=== PATIENT | male | born 1940 | race Caucasian/White ===

== ENCOUNTER 2018-10-11 17:10 | Inpatient (IN) | payer MEDICARE, OTHER ==
[~2018-10-11] VITALS: Ht 177.8 cm; Wt 56.5 kg
[2018-10-11] MEDS ORDERED: DILTIAZEM 125 MG in DEXTROSE 5% 100 ML IV SCH (17:13)
[2018-10-11] MEDS ORDERED: DILTIAZEM 5 MG/ML, 5ML IV ONE (17:30)
[2018-10-11] MEDS ORDERED: SODIUM CHLORIDE FLUSH 10ML SYR IVF ONE ×2 (17:30→18:00)
[2018-10-11] MEDS ORDERED: [UNRECOGNIZED DRUG - REMARK] MC SCH (17:30)
[2018-10-11] MEDS ORDERED: DILTIAZEM 5 MG/ML, 10ML ONE (17:35)
[2018-10-11 18:10] LABS: BASOPHILS # (AUTO) 0.01 x10^3/uL (0-0.1); BASOPHILS % (AUTO) 0 % (0-1); EOSINOPHILS # (AUTO) 0.04 x10^3/uL (0-0.4); EOSINOPHILS % (AUTO) 1 % (1-7); LYMPHOCYTES % (AUTO) 8 % (22-44); MD NO; MEAN CORPUSCULAR HEMOGLOBIN 29.3 pg (27.5-34.5); MEAN CORPUSCULAR HGB CONC 33.1 g/dL (33.2-36.2); MEAN CORPUSCULAR VOLUME 88.4 fL (81-97); MEAN PLATELET VOLUME 8.9 fL (7.4-10.4); MONOCYTES # (AUTO) 0.54 x10^3/uL (0.2-0.8); MONOCYTES % (AUTO) 7 % (2-9); NEUTROPHILS # (AUTO) 6.45 x10^3/uL (1.8-6.8); NEUTROPHILS % (AUTO) 84 % (42-75); PLATELET COUNT 260 x10^3/uL (130-400); RED BLOOD COUNT 4.58 x10^6/uL (4.38-5.82)
[2018-10-11 18:18] LABS: INTERNATIONAL NORMALIZED RATIO 0.95 (0.93-1.1)
--- NOTE | 2018-10-11 18:18 | NUR ---
Pt presents to ED by EMS after being [place] "wandering [place] with word salad speech". Pt is AOx1, skin is pink, warm, dry, all extremities are strong, no drift of arms observed, no defecits observed in all extremities. Pt has old eye injury to left eye prior to arrival. Pt has unlabored respirations equal bilaterally. ED MD at bedside when EMS arrived. Pt has 18g PIV in right bicep placed ship's captain. Pt connected to NIBP, continous pulse ox, and cardiac nurse specialist. All safety measurs in place, call light is within reach.
--- NOTE | 2018-10-11 18:20 | NUR ---
Pt transported on [place] to [place] at this time.
[2018-10-11 18:21] LABS: ALBUMIN 3.5 g/dL (3.4-5.0); ANION GAP 10 mmol/L (5-15); CALCIUM 9.4 mg/dL (8.5-10.1); CHLORIDE 102 mmol/L (98-107)
[2018-10-11 18:24] LABS: ALANINE AMINOTRANSFERASE 13 U/L (12-78); ALKALINE PHOSPHATASE 84 U/L (45-117); BILIRUBIN,TOTAL 0.5 mg/dL (0.2-1.0); CREATINE KINASE, TOTAL 109 U/L (39-308); TROPONIN I 0.034 ng/mL (0.000-0.045)
[2018-10-11] MEDS ORDERED: ONDANSETRON 2MG/ML, 2ML ONE (18:29)
[2018-10-11 18:30] LABS: T4 (THYROXINE) 8.6 mcg/dL (4.5-12.1)
[2018-10-11] MEDS ORDERED: ONDANSETRON 2MG/ML, 2ML IVPush ONE (18:30)
--- NOTE | 2018-10-11 18:47 | NUR ---
Pt returned from CT unable to have CT done due to vomiting, agitation, and attempting to climb out of bed without assistance. Pt provided medication per EMAR for nausea and vomiting. Pt assisted with urinal by ED staff nurse. Pt resting on gurney quietly at this time with sitter near bedside. Pt connected to aeronautical research engineer, NIBP, and continous pulse ox. All safety measures in place. Pt has unlabored respirations equal bilaterally.
--- NOTE | 2018-10-11 18:56 | NUR ---
Provided bedside report to TANYA Grider. All questions answered. TANYA Grider asssuming care of pt at this time. Pt transported on gurney to CT at this time.
--- NOTE | 2018-10-11 19:00 | NUR ---
ASSUMED CARE OF PATIENT. REPORT GIVEN FROM TANYA WEATHERS
--- NOTE | 2018-10-11 19:01 | NUR ---
PT WENT TO CT
[2018-10-11] MEDS ORDERED: LORazepam 2 MG/ML, 1ML ONE ×2 (19:08→20:17)
--- NOTE | 2018-10-11 19:12 | NUR ---
PT WAS NOT ABLE TO HOLD STILL ON CT TABLE. ATIVAN GIVEN PER DR PAYNE VS STABLE. WILL CONTINUE TO MONITOR.
[2018-10-11 19:14] LABS: ACETONE, SERUM Small (20mg/dL) mg/dL (Negative)
--- NOTE | 2018-10-11 19:25 | NUR ---
HOLD JESSICA AT THIS TIME PER DR PAYNE
[2018-10-11] MEDS ORDERED: LORazepam 2 MG/ML, 1ML IVPush ONE ×2 (19:30→20:30)
[2018-10-11 19:49] LABS: MICROSCOPIC INDICATED
[2018-10-11 19:58] LABS: CULTURE INDICATED? NO
--- NOTE | 2018-10-11 20:28 | NUR ---
PT IS AGITATED AND TRYING TO CRAWL OUT OF BED. PT MEDICATED SITTER AT BEDSIDE. WILL CONTINUE TO MONITOR.
[2018-10-11] MEDS ORDERED: LABETALOL 5 MG/ML SYRINGE IVPush PRN (20:30)
[2018-10-11] MEDS ORDERED: SODIUM CHLORIDE FLUSH 10ML SYR IVF PRN (20:30)
[2018-10-11] MEDS ORDERED: ASPIRIN 325 MG TABLET PO ONE (21:00)
[2018-10-11] MEDS ORDERED: HALOPERIDOL 5 MG/ML IV PRN (21:00)
[2018-10-11] MEDS ORDERED: HEPARIN 5,000 UNITS/ML, 1ML IV ONE (21:00)
[2018-10-11] MEDS: SODIUM CHLORIDE 0.9% 1,000 ML IV SCH (21:06)
--- NOTE | 2018-10-11 21:13 | NUR ---
US IN ROOM
[2018-10-11] MEDS: INSULIN LISPRO 100 UNITS/ML, PEN SQ-INSULIN SCH (21:17)
[2018-10-11] MEDS: DILTIAZEM 30 MG TABLET PO SCH (21:21)
--- NOTE | 2018-10-11 21:29 | NUR ---
PT PLACED ON A AIR MATRESS FOR COMFORT.
[2018-10-11] MEDS ORDERED: HEPARIN 25,000 UNITS/500ML PMX 500 ML ONE (21:31)
[2018-10-11] MEDS ORDERED: HEPARIN 5,000 UNITS/ML, 1ML ONE (21:31)
[2018-10-11] MEDS ORDERED: ASPIRIN 325 MG TABLET ONE (21:31)
[2018-10-11 21:48] LABS: HEMOGLOBIN A1C 11.8 % (4.2-6.3)
--- NOTE | 2018-10-11 22:06 | NUR ---
HEPARIN NOT GIVEN, WAITING ON LAB TO BE DRAWN
[2018-10-11] MEDS: HEPARIN 25,000 UNITS/500ML PMX 500 ML IV PRN (22:52)
[2018-10-12 00:10] VITALS: BP 186/87
[2018-10-12] MEDS: DILTIAZEM 30 MG TABLET PO SCH ×2 (04:25→12:02)
[2018-10-12 05:38] VITALS: BP 156/69
[2018-10-12 05:38] LABS: BASOPHILS # (AUTO) 0.04 x10^3/uL (0-0.1); BASOPHILS % (AUTO) 1 % (0-1); EOSINOPHILS # (AUTO) 0.12 x10^3/uL (0-0.4); EOSINOPHILS % (AUTO) 2 % (1-7); LYMPHOCYTES # (AUTO) 1.22 x10^3/uL (1-3.4); LYMPHOCYTES % (AUTO) 16 % (22-44); MD NO; MEAN CORPUSCULAR HEMOGLOBIN 28.6 pg (27.5-34.5); MEAN CORPUSCULAR HGB CONC 32.6 g/dL (33.2-36.2); MEAN CORPUSCULAR VOLUME 87.8 fL (81-97); MEAN PLATELET VOLUME 8.5 fL (7.4-10.4); MONOCYTES % (AUTO) 16 % (2-9); NEUTROPHILS # (AUTO) 5.12 x10^3/uL (1.8-6.8); NEUTROPHILS % (AUTO) 66 % (42-75); PLATELET COUNT 231 x10^3/uL (130-400); RED BLOOD COUNT 4.39 x10^6/uL (4.38-5.82); RED CELL DISTRIBUTION WIDTH 14.8 % (9.4-14.8)
[2018-10-12 05:52] LABS: CALCIUM 8.7 mg/dL (8.5-10.1); CHLORIDE 106 mmol/L (98-107)
[2018-10-12 06:06] LABS: ANION GAP 8 mmol/L (5-15); CREATININE 1.76 mg/dL (0.7-1.3)
[2018-10-12 07:50] VITALS: BP 162/86
[2018-10-12] MEDS: SODIUM CHLORIDE 0.9% 1,000 ML IV SCH ×2 (09:36→20:36)
[2018-10-12] MEDS: INSULIN LISPRO 100 UNITS/ML, PEN SQ-INSULIN SCH ×4 (11:00→20:36)
[2018-10-12] MEDS: HEPARIN 5,000 UNITS/ML, 1ML IV PRN (12:43)
[2018-10-12 13:55] VITALS: BP 157/74
[2018-10-12] MEDS ORDERED: hydrALAzine 20 MG/ML, 1ML IV ONE ×2 (15:00)
[2018-10-12] MEDS: CARVEDILOL 6.25 MG TABLET PO SCH (17:42)
[2018-10-12] MEDS ORDERED: CARVEDILOL 6.25 MG TABLET PO SCH (18:00)
[2018-10-12 20:04] VITALS: BP 160/88
[2018-10-12] MEDS: LISINOPRIL 10 MG TABLET PO SCH (20:32)
[2018-10-12] MEDS: ATORVASTATIN 80 MG TABLET PO SCH (20:32)
[2018-10-13 01:48] VITALS: BP 158/87
[2018-10-13] MEDS: HEPARIN 25,000 UNITS/500ML PMX 500 ML IV PRN (03:35)
[2018-10-13] MEDS: HEPARIN 5,000 UNITS/ML, 1ML IV PRN ×2 (03:37→17:56)
[2018-10-13] MEDS ORDERED: ASPIRIN 325 MG TABLET PO SCH (06:00)
[2018-10-13 06:05] LABS: BASOPHILS # (AUTO) 0.06 x10^3/uL (0-0.1); BASOPHILS % (AUTO) 1 % (0-1); EOSINOPHILS % (AUTO) 6 % (1-7); LYMPHOCYTES # (AUTO) 0.99 x10^3/uL (1-3.4); LYMPHOCYTES % (AUTO) 16 % (22-44); MD NO; MEAN CORPUSCULAR HEMOGLOBIN 29.4 pg (27.5-34.5); MEAN CORPUSCULAR HGB CONC 33.4 g/dL (33.2-36.2); MEAN PLATELET VOLUME 8.6 fL (7.4-10.4); MONOCYTES # (AUTO) 0.68 x10^3/uL (0.2-0.8); MONOCYTES % (AUTO) 11 % (2-9); NEUTROPHILS # (AUTO) 4.13 x10^3/uL (1.8-6.8); NEUTROPHILS % (AUTO) 66 % (42-75); PLATELET COUNT 215 x10^3/uL (130-400); RED BLOOD COUNT 4.37 x10^6/uL (4.38-5.82); RED CELL DISTRIBUTION WIDTH 15.1 % (9.4-14.8)
[2018-10-13 06:17] LABS: ANION GAP 7 mmol/L (5-15); CALCIUM 8.8 mg/dL (8.5-10.1); CHLORIDE 106 mmol/L (98-107); CREATININE 1.67 mg/dL (0.7-1.3)
[2018-10-13] MEDS: CARVEDILOL 6.25 MG TABLET PO SCH (06:46)
[2018-10-13] MEDS: ASPIRIN 81 MG TABLET CHEW PO SCH (06:47)
[2018-10-13] MEDS: INSULIN LISPRO 100 UNITS/ML, PEN SQ-INSULIN SCH ×4 (07:00→20:34)
[2018-10-13 08:26] VITALS: BP 153/89
[2018-10-13] MEDS: LISINOPRIL 10 MG TABLET PO SCH ×2 (09:20→20:29)
[2018-10-13 13:55] VITALS: BP 136/81
[2018-10-13] MEDS: CARVEDILOL 25 MG TABLET PO SCH (17:14)
[2018-10-13] MEDS ORDERED: CARVEDILOL 6.25 MG TABLET PO SCH (18:00)
[2018-10-13] MEDS ORDERED: CARVEDILOL 25 MG TABLET PO SCH (18:00)
[2018-10-13 19:39] VITALS: BP 155/82
[2018-10-13] MEDS: ATORVASTATIN 80 MG TABLET PO SCH (20:29)
[2018-10-14 00:48] VITALS: BP 158/75
[2018-10-14] MEDS: HEPARIN 25,000 UNITS/500ML PMX 500 ML IV PRN (03:46)
[2018-10-14] MEDS: CARVEDILOL 25 MG TABLET PO SCH ×2 (05:47→17:47)
[2018-10-14 06:33] LABS: BASOPHILS # (AUTO) 0.04 x10^3/uL (0-0.1); BASOPHILS % (AUTO) 1 % (0-1); EOSINOPHILS # (AUTO) 0.24 x10^3/uL (0-0.4); EOSINOPHILS % (AUTO) 4 % (1-7); LYMPHOCYTES # (AUTO) 0.68 x10^3/uL (1-3.4); LYMPHOCYTES % (AUTO) 12 % (22-44); MD NO; MEAN CORPUSCULAR HEMOGLOBIN 29.2 pg (27.5-34.5); MEAN CORPUSCULAR HGB CONC 33.4 g/dL (33.2-36.2); MEAN CORPUSCULAR VOLUME 87.5 fL (81-97); MEAN PLATELET VOLUME 8.6 fL (7.4-10.4); MONOCYTES # (AUTO) 0.61 x10^3/uL (0.2-0.8); MONOCYTES % (AUTO) 11 % (2-9); NEUTROPHILS # (AUTO) 4.07 x10^3/uL (1.8-6.8); NEUTROPHILS % (AUTO) 72 % (42-75); PLATELET COUNT 209 x10^3/uL (130-400); RED BLOOD COUNT 4.19 x10^6/uL (4.38-5.82); RED CELL DISTRIBUTION WIDTH 15.2 % (9.4-14.8)
[2018-10-14 06:45] LABS: ANION GAP 6 mmol/L (5-15); CALCIUM 8.6 mg/dL (8.5-10.1); CHLORIDE 105 mmol/L (98-107); CREATININE 1.56 mg/dL (0.7-1.3)
[2018-10-14 07:20] VITALS: BP 135/65
[2018-10-14] MEDS: INSULIN LISPRO 100 UNITS/ML, PEN SQ-INSULIN SCH ×4 (07:57→20:49)
[2018-10-14] MEDS ORDERED: REGADENOSON 0.4 MG/5 ML SYRINGE ONE (10:31)
[2018-10-14] MEDS: LISINOPRIL 10 MG TABLET PO SCH ×2 (11:30→20:48)
[2018-10-14 14:40] VITALS: BP 114/67
[2018-10-14 18:59] VITALS: BP 135/71
[2018-10-14] MEDS: ATORVASTATIN 80 MG TABLET PO SCH (20:48)
[2018-10-15 00:56] VITALS: BP 157/82
[2018-10-15] MEDS: HEPARIN 25,000 UNITS/500ML PMX 500 ML IV PRN (02:32)
[2018-10-15 05:34] LABS: BASOPHILS # (AUTO) 0.01 x10^3/uL (0-0.1); BASOPHILS % (AUTO) 0 % (0-1); EOSINOPHILS # (AUTO) 0.25 x10^3/uL (0-0.4); EOSINOPHILS % (AUTO) 5 % (1-7); LYMPHOCYTES # (AUTO) 0.94 x10^3/uL (1-3.4); LYMPHOCYTES % (AUTO) 18 % (22-44); MD NO; MEAN CORPUSCULAR HEMOGLOBIN 29.6 pg (27.5-34.5); MEAN CORPUSCULAR HGB CONC 33.8 g/dL (33.2-36.2); MEAN CORPUSCULAR VOLUME 87.6 fL (81-97); MEAN PLATELET VOLUME 9.4 fL (7.4-10.4); MONOCYTES # (AUTO) 0.64 x10^3/uL (0.2-0.8); MONOCYTES % (AUTO) 12 % (2-9); NEUTROPHILS # (AUTO) 3.42 x10^3/uL (1.8-6.8); NEUTROPHILS % (AUTO) 65 % (42-75); PLATELET COUNT 198 x10^3/uL (130-400); RED BLOOD COUNT 3.95 x10^6/uL (4.38-5.82); RED CELL DISTRIBUTION WIDTH 15.1 % (9.4-14.8)
[2018-10-15 05:39] LABS: ANION GAP 5 mmol/L (5-15); CALCIUM 8.6 mg/dL (8.5-10.1); CHLORIDE 107 mmol/L (98-107)
[2018-10-15 05:41] LABS: CREATININE 1.66 mg/dL (0.7-1.3)
[2018-10-15] MEDS: ASPIRIN 81 MG TABLET CHEW PO SCH (06:28)
[2018-10-15] MEDS: CARVEDILOL 25 MG TABLET PO SCH ×2 (06:29→16:50)
[2018-10-15 07:30] VITALS: BP 138/72
[2018-10-15] MEDS: INSULIN LISPRO 100 UNITS/ML, PEN SQ-INSULIN SCH ×4 (08:55→21:00)
[2018-10-15] MEDS: LISINOPRIL 10 MG TABLET PO SCH ×2 (10:29→21:00)
[2018-10-15 13:55] VITALS: BP 144/71
[2018-10-15] MEDS: RIVAROXABAN 15 MG TABLET PO SCH (16:50)
[2018-10-15] MEDS: ATORVASTATIN 80 MG TABLET PO SCH (20:59)
[2018-10-15 21:58] VITALS: BP 153/68
[2018-10-16 03:14] VITALS: BP 151/74
[2018-10-16 06:00] LABS: BASOPHILS # (AUTO) 0.02 x10^3/uL (0-0.1); BASOPHILS % (AUTO) 0 % (0-1); EOSINOPHILS # (AUTO) 0.22 x10^3/uL (0-0.4); EOSINOPHILS % (AUTO) 3 % (1-7); LYMPHOCYTES # (AUTO) 0.85 x10^3/uL (1-3.4); LYMPHOCYTES % (AUTO) 11 % (22-44); MD NO; MEAN CORPUSCULAR HEMOGLOBIN 28.9 pg (27.5-34.5); MEAN CORPUSCULAR HGB CONC 33.2 g/dL (33.2-36.2); MEAN PLATELET VOLUME 9.1 fL (7.4-10.4); MONOCYTES # (AUTO) 0.92 x10^3/uL (0.2-0.8); MONOCYTES % (AUTO) 12 % (2-9); NEUTROPHILS # (AUTO) 5.46 x10^3/uL (1.8-6.8); NEUTROPHILS % (AUTO) 73 % (42-75); PLATELET COUNT 202 x10^3/uL (130-400); RED BLOOD COUNT 3.87 x10^6/uL (4.38-5.82); RED CELL DISTRIBUTION WIDTH 15.3 % (9.4-14.8)
[2018-10-16 06:02] LABS: CHLORIDE 108 mmol/L (98-107)
[2018-10-16 06:09] LABS: ANION GAP 6 mmol/L (5-15); CALCIUM 8.5 mg/dL (8.5-10.1); CREATININE 1.61 mg/dL (0.7-1.3)
[2018-10-16] MEDS: CARVEDILOL 25 MG TABLET PO SCH ×2 (06:29→16:51)
[2018-10-16] MEDS: ASPIRIN 81 MG TABLET CHEW PO SCH (06:29)
[2018-10-16 07:05] VITALS: BP 107/74
[2018-10-16] MEDS: INSULIN LISPRO 100 UNITS/ML, PEN SQ-INSULIN SCH ×4 (07:33→20:56)
[2018-10-16] MEDS: LISINOPRIL 10 MG TABLET PO SCH ×2 (07:35→20:56)
[2018-10-16 13:50] VITALS: BP 160/80
[2018-10-16] MEDS ORDERED: ACETAMINOPHEN 325 MG TABLET ONE (14:33)
[2018-10-16] MEDS ORDERED: ACETAMINOPHEN 325 MG TABLET PO PRN (15:00)
[2018-10-16] MEDS: RIVAROXABAN 15 MG TABLET PO SCH (16:51)
[2018-10-16 19:21] VITALS: BP 105/54
[2018-10-16] MEDS: ATORVASTATIN 80 MG TABLET PO SCH (20:56)
[2018-10-17 01:53] VITALS: BP 122/70
[2018-10-17] MEDS: CARVEDILOL 25 MG TABLET PO SCH (05:19)
[2018-10-17] MEDS: ASPIRIN 81 MG TABLET CHEW PO SCH (05:19)
[2018-10-17 06:11] LABS: BASOPHILS # (AUTO) 0.02 x10^3/uL (0-0.1); BASOPHILS % (AUTO) 0 % (0-1); EOSINOPHILS # (AUTO) 0.16 x10^3/uL (0-0.4); EOSINOPHILS % (AUTO) 3 % (1-7); LYMPHOCYTES # (AUTO) 0.71 x10^3/uL (1-3.4); LYMPHOCYTES % (AUTO) 12 % (22-44); MD NO; MEAN CORPUSCULAR HEMOGLOBIN 29.8 pg (27.5-34.5); MEAN CORPUSCULAR HGB CONC 33.8 g/dL (33.2-36.2); MEAN CORPUSCULAR VOLUME 88.2 fL (81-97); MEAN PLATELET VOLUME 9.5 fL (7.4-10.4); MONOCYTES # (AUTO) 0.69 x10^3/uL (0.2-0.8); MONOCYTES % (AUTO) 12 % (2-9); NEUTROPHILS # (AUTO) 4.16 x10^3/uL (1.8-6.8); NEUTROPHILS % (AUTO) 73 % (42-75); PLATELET COUNT 190 x10^3/uL (130-400); RED BLOOD COUNT 3.72 x10^6/uL (4.38-5.82); RED CELL DISTRIBUTION WIDTH 15.1 % (9.4-14.8)
[2018-10-17 06:13] LABS: ANION GAP 4 mmol/L (5-15); CALCIUM 8.3 mg/dL (8.5-10.1); CHLORIDE 109 mmol/L (98-107); CREATININE 1.56 mg/dL (0.7-1.3)
[2018-10-17 06:42] VITALS: BP 137/65
[2018-10-17] MEDS: LISINOPRIL 10 MG TABLET PO SCH (08:16)
[2018-10-17] MEDS: INSULIN LISPRO 100 UNITS/ML, PEN SQ-INSULIN SCH ×3 (08:16→16:12)
[2018-10-17] MEDS ORDERED: INSULIN GLARGINE 100 UNITS/ML, PEN SQ-INSULIN SCH (10:30)
[2018-10-17 13:02] VITALS: BP 126/62
[2018-10-17] MEDS ORDERED: RIVA15TA PO (15:12)
[2018-10-17] MEDS ORDERED: INSU100I13 SQ-INSULIN (15:12)
[2018-10-17] MEDS ORDERED: ATOR-2 PO (15:12)
[2018-10-17] MEDS ORDERED: CARV25TA12 PO (15:12)
[2018-10-17] MEDS ORDERED: LISI-167 PO (15:12)
[2018-10-17] MEDS ORDERED: INSU100I11 SQ-INSULIN (15:12)
[2018-10-17] MEDS ORDERED: ASPI-515 PO (15:12)
[2018-10-17] MEDS: RIVAROXABAN 15 MG TABLET PO SCH (16:12)
== END 2018-10-17 17:39 | DRG 280 ==
LOC: ED 20:45 → 5SO 22:21
PROVIDERS: ADMIT Family Medicine; ATTEND Family Medicine
DX: I21.4 Non-ST elevation (NSTEMI) myocardial infarction (principal); N17.0 Acute kidney failure with tubular necrosis; E46 Unspecified protein-calorie malnutrition; D68.69 Other thrombophilia; I50.42 Chronic combined systolic (congestive) and diastolic (congestive) heart failure; I13.0 Hypertensive heart and chronic kidney disease with heart failure and stage 1 through stage 4 chronic kidney disease, or unspecified chronic kidney disease; Z68.1 Body mass index [BMI] 19.9 or less, adult; E11.22 Type 2 diabetes mellitus with diabetic chronic kidney disease; N18.9 Chronic kidney disease, unspecified; I25.5 Ischemic cardiomyopathy; I48.91 Unspecified atrial fibrillation; I25.10 Atherosclerotic heart disease of native coronary artery without angina pectoris; E78.5 Hyperlipidemia, unspecified; E11.65 Type 2 diabetes mellitus with hyperglycemia; D64.9 Anemia, unspecified; Z95.1 Presence of aortocoronary bypass graft; Z87.891 Personal history of nicotine dependence; Z86.73 Personal history of transient ischemic attack (TIA), and cerebral infarction without residual deficits
CPT/HCPCS: 36415; 70450; 71045; 76770; 78452; 80048; 80053; 81001; 82010; 82550; 82553; 82962; 83036; 83605; 83690; 83735; 83880; 84436; 84443; 84484; 85025; 85520; 85610; 85730; 87040; 93005; 93017; 93306; 99285; G0378; J1644; J2405; J2785; 92523-GN; A9502; C9898; J1815; J2060; J7030